=== PATIENT | male | born 1980 | race Caucasian/White ===

== ENCOUNTER 2020-04-02 10:00 | Outpatient (CLI) | payer OTHER, SELFPAY ==
[2020-03-27 14:48] VITALS: BMI 48.8
--- NOTE | ~2020-04-02 | XR_ITS ---
EXAMINATION: XR myelogram spine cervical EXAM DATE: 04/02/2020 12:26 INDICATION: Cervical radiculopathy. Cervical fusion C5-7. TECHNIQUE: Informed consent was obtained from the patient for doing this procedure. I discussed fransisco efits and risks including bleeding, infection, backache, headache and seizure. Alternatives also disc ussed. The DAP for this procedure was 150 Gycm2. Time out procedure was performed. Link Trainer radiograph was obtained. An entry site was chosen at the L2 /3 level. A right paracentral approach was used. Standard sterile prep was done with Betadine. Ent ry site was infiltrated with 3 cc 1% lidocaine. A 6 22G spinal needle was then inserted into the sp inal canal. After about 5 milliliters Omnipaque 300 were injected into the thecal sac, a small more f ocal pool of contrast near the needle tip indicated high likelihood of small amount of epidural contr ast, that needle tip was no longer intrathecal. No further contrast was administered. Only frontal fl uoroscopic cervical myelogram images obtained due to poor visualization from half of intended dose an d patient's body habitus. The CT portion of exam has adequate intrathecal contrast, is diagnostic. Spiral CT of the cervical spine was performed with the intrathecal contrast. Axial images were revie wed. Coronal and sagittal reformatted images were also reviewed. The dose-length product (DLP) for t his examination was 628.80 mGy-cm. The exposure was tailored according to patient size (auto mA expo sure control), and iterative reconstruction (ASIR) was used as additional dose reduction technique. . Following this, patient was placed in postoperative area for 2 hours observation prior to being disc harged. There were no immediate complications. There are no prior studies for comparison. FINDINGS: CERVICAL MYELOGRAM: Vague contrast identified within the spinal canal reaching the cervical spine, no myelographic block. There is anterior and interbody cervical fusion hardware at C5-7. Images of lumb ar spine demonstrate left L4/5 paracentral entry approach with spinal needle, intrathecal contrast an d on final interest tiny blush of extrathecal contrast. CT CERVICAL SPINE with contrast: There is adequate intrathecal contrast. There is mild reversal of th e normal cervical lordosis which may be positional or spasm. The vertebral bodies are aligned in the AP dimension. Mild loss of the C4-5 disc height. There is cervical fusion hardware C5-7 with anterior plate and interbody devices. Cord has normal morphology, no cervical cord compression. There are no osteoblastic or osteolytic lesions identified. Paraspinal soft tissue is unremarkable. Level by level evaluation: C2-C3: Disc does not extend beyond the endplate margin. Uncovertebral joint arthropathy: None. Facet joint arthropathy: Mild bilateral. Neural foraminal stenosis: No stenosis. Central canal stenosis: No stenosis. C3-C4: Disc does not extend beyond the endplate margin. Uncovertebral joint arthropathy: Minimal left. Facet joint arthropathy: Mild bilateral. Neural foraminal stenosis: No stenosis. Central canal stenosis: No stenosis. C4-C5: Disc does not extend beyond the endplate margin. Uncovertebral joint arthropathy: Mild bilateral. Facet joint arthropathy: Mild bilateral. Neural foraminal stenosis: No stenosis. Central canal stenosis: No stenosis. C5-C6: This level is fused. Uncovertebral joint arthropathy: Mild left, minimal right. Facet joint arthropathy: Mild to moderate right, mild left. Neural foraminal stenosis: Mild left. Central canal stenosis: No stenosis. C6-C7: This level is fused. Uncovertebral joint arthropathy: Mild left. Facet joint arthropathy: Mild to moderate bilateral. Neural foraminal stenosis: No stenosis. Central canal stenosis: No stenosis. C7-T1: Disc does no
[2020-04-02 10:36] LABS: Mean Platelet Volume 9.6 fl (7.4-10.4); Platelet Count Result 247 k/mm3 (150-375)
[2020-04-02 10:47] LABS: Prothrombin Time 12.4 Seconds (11.1-14.7)
[2020-04-02 11:00] VITALS: BP 116/69; PULSE 75; RESP 18; O2SAT 95
[2020-04-02 12:15] VITALS: BP 121/59; PULSE 75; RESP 16; O2SAT 97
[2020-04-02 12:20] VITALS: BP 121/60; PULSE 74; RESP 14; O2SAT 97
[2020-04-02 12:50] VITALS: BP 103/62; PULSE 70; RESP 14
[2020-04-02 13:20] VITALS: BP 103/46; PULSE 73; RESP 14
--- NOTE | 2020-04-02 13:38 | SUR.PHASEII ---
1335 dr song here and talked to pt ,approved pt for discharge at 1400.
[2020-04-02 13:50] VITALS: BP 141/73; PULSE 81; RESP 14
== END 2020-04-02 14:00 | disposition home or self-care (01) ==
PROVIDERS: Radiology Diagnostic Radiology
DX: M47.22 Other spondylosis with radiculopathy, cervical region (principal); Z98.1 Arthrodesis status
CPT/HCPCS: 36415; 62302; 72126; 85049; 85610; Q9967